=== PATIENT | male | born 1955 ===

== ENCOUNTER 2025-04-12 12:45 | Inpatient (IN) | payer OTHER ==
[~2025-04-12] VITALS: Ht 182.9 cm; Wt 84.8 kg
[2025-04-12] MEDS ORDERED: LIPITOR20 MG (14:11)
[2025-04-12] MEDS ORDERED: NORVASC5 MG PO (14:12)
[2025-04-12] MEDS ORDERED: JARDIANCE25 MG PO (14:12)
[2025-04-12] MEDS ORDERED: ZESTRIL20 MG PO (14:12)
[2025-04-12] MEDS ORDERED: HYDRALAZINE HCL25 MG PO (14:12)
[2025-04-12] MEDS ORDERED: ASA81 MG PO (14:13)
[2025-04-12] MEDS ORDERED: CARVEDILOL25 MG (14:13)
[2025-04-12] MEDS ORDERED: TAMS0.4C PO (14:14)
[2025-04-12] MEDS ORDERED: PLAVIX75 MG PO (14:14)
[2025-04-20] MEDS ORDERED: ROSUVASTATIN CA20 MG (15:20)
[2025-04-20] MEDS ORDERED: OXYBUTYNIN CHLO15 MG (15:21)
[2025-04-27] MEDS ORDERED: METRONIDAZOLE/SODIUM CHLORIDE 500 MG/100 ML PIGGYBACK IV ONE ×2 (07:00→17:26)
[2025-04-27] MEDS ORDERED: BUPIVACAINE HCL/MPF 0.5% 30ML VIAL ONE (07:00)
[2025-04-27] MEDS ORDERED: CEFTRIAXONE SODIUM 2,000 MG VIAL ONE (07:00)
[2025-04-27] MEDS ORDERED: LIDOCAINE HCL 1% 20 ML VIAL IJ ONE (07:01)
[2025-04-27] MEDS ORDERED: SUGAMMADEX SODIUM 200 MG/2 ML VIAL IV ONE (11:00)
[2025-04-27] MEDS ORDERED: OxyCODONE HCL 5 MG TABLET (ROXICODONE) PO PRN (11:15)
[2025-04-27] MEDS ORDERED: ONDANSETRON HCL 2 MG/ML VIAL IV PRN (11:15)
[2025-04-27] MEDS ORDERED: MORPHINE SULFATE 4 MG/ML CARTRIDGE IV PRN (11:15)
[2025-04-27] MEDS ORDERED: DEXTROSE 50 % IN WATER 0.5 G/ML VIAL IV PRN ×2 (11:15→13:45)
[2025-04-27] MEDS ORDERED: RINGERS SOLUTION,LACTATED 1,000 ML IV SCH (11:15)
[2025-04-27] MEDS ORDERED: ACETAMINOPHEN 500 MG GEL..CAP PO SCH (12:00)
[2025-04-27] MEDS ORDERED: SIMETHICONE 125 MG CAPSULE PO SCH (13:00)
[2025-04-27] MEDS ORDERED: HYOSCYAMINE SULFATE 0.125 MG TAB.SUBL SL SCH (13:00)
[2025-04-27] MEDS ORDERED: INSULIN LISPRO 1,000 UNIT/10 ML UNITS SUBCUTANEO PRN (13:45)
[2025-04-27 13:46] LABS: BASO % 0.5 % (0.1-1.2); EOS # 0.01 (0.04-0.54); EOS % 0.2 % (0.7-7.0); LYMPH # 0.45 (1.18-3.74); LYMPH % 8.2 % (19.3-53.1); MEAN PLATELET VOLUME 10.90 fl (9.4-12.4); MONO # 0.35 (0.24-0.82); MONO % 6.3 % (4.7-12.5); NEUT # 4.67 (1.56-6.13); NEUT % 84.6 % (34.0-71.1); RED CELL DISTRIBUTION WIDTH 11.9 % (11.6-14.4)
[2025-04-27] MEDS ORDERED: ENALAPRILAT DIHYDRATE 1.25 MG/ML VIAL IV PRN (14:00)
[2025-04-27 14:21] LABS: BUN CREA RATIO 15.0 (7.0-25.0); CREATININE SERUM 1.17 mg/dL (0.70-1.30); GFR 61.99; GLUCOSE FASTING 157.0 mg/dL (65-100); OSMOLALITY SERUM 290.0 MOSM/KG (275-295)
[2025-04-27] MEDS ORDERED: METRONIDAZOLE/SODIUM CHLORIDE 500 MG/100 ML PIGGYBACK IV SCH (17:00)
[2025-04-27] MEDS ORDERED: METOCLOPRAMIDE HCL 5 MG/ML VIAL IV SCH (17:00)
[2025-04-27] MEDS ORDERED: GABAPENTIN 300 MG CAPSULE PO SCH (17:00)
[2025-04-27] MEDS ORDERED: HYOSCYAMINE SULFATE 0.125 MG TAB.SUBL ONE (17:25)
[2025-04-27] MEDS ORDERED: SIMETHICONE 125 MG CAPSULE PO ONE ×2 (17:25→20:21)
[2025-04-27] MEDS ORDERED: GABAPENTIN 300 MG CAPSULE PO ONE (17:25)
[2025-04-27] MEDS ORDERED: ACETAMINOPHEN 500 MG GEL..CAP PO ONE (19:11)
[2025-04-27] MEDS ORDERED: CIPROFLOXACIN IN 5 % DEXTROSE 400 MG/200 ML PIGGYBAG IV ONE (20:15)
[2025-04-27] MEDS ORDERED: FAMOTIDINE/PF 20 MG/2 ML VIAL ONE (20:15)
[2025-04-27] MEDS ORDERED: TAMSULOSIN HCL 0.4 MG CAP PO ONE (20:21)
[2025-04-27] MEDS ORDERED: CIPROFLOXACIN IN 5 % DEXTROSE 400 MG/200 ML PIGGYBAG IV SCH (21:00)
[2025-04-27] MEDS ORDERED: FAMOTIDINE/PF 20 MG/2 ML VIAL IV PUSH SCH (21:00)
[2025-04-27] MEDS ORDERED: TAMSULOSIN HCL 0.4 MG CAP PO SCH (21:00)
[2025-04-27 21:20] VITALS: BP 140/70; O2SAT 93
[2025-04-28] VITALS (10 sets, daily range): BP systolic 113–149; BP diastolic 57–71; O2SAT 90–97
[2025-04-28 07:23] LABS: BUN CREA RATIO 13.0 (7.0-25.0); CREATININE SERUM 0.96 mg/dL (0.70-1.30); GFR 77.89; GLUCOSE FASTING 139.0 mg/dL (65-100); OSMOLALITY SERUM 285.0 MOSM/KG (275-295)
[2025-04-28 07:30] LABS: BASO % 0.1 % (0.1-1.2); EOS # 0.00 (0.04-0.54); EOS % 0.0 % (0.7-7.0); LYMPH # 0.60 (1.18-3.74); LYMPH % 7.9 % (19.3-53.1); MEAN PLATELET VOLUME 11.10 fl (9.4-12.4); MONO # 0.70 (0.24-0.82); MONO % 9.2 % (4.7-12.5); NEUT # 6.24 (1.56-6.13); NEUT % 82.4 % (34.0-71.1); RED CELL DISTRIBUTION WIDTH 11.6 % (11.6-14.4)
[2025-04-28] MEDS ORDERED: AMLODIPINE BESYLATE 5 MG TABLET PO SCH (09:00)
[2025-04-28] MEDS ORDERED: LACTOBACILLUS ACIDOPHILUS 1 CAP CAP PO SCH (09:00)
[2025-04-28] MEDS ORDERED: CARVEDILOL 25 MG TABLET PO SCH (09:00)
[2025-04-28] MEDS ORDERED: LISINOPRIL 20 MG TABLET PO SCH (09:00)
[2025-04-28] MEDS ORDERED: MAGNESIUM SULFATE IN WATER 4 GM/100 ML PIGGYBACK IV NR (15:30)
[2025-04-28] MEDS ORDERED: ATORVASTATIN CALCIUM 20 MG TABLET PO SCH (17:00)
[2025-04-28] MEDS ORDERED: ENOXAPARIN SODIUM 40 MG/0.4 ML SYRINGE SUBCUTANEO SCH (17:00)
[2025-04-28] MEDS ORDERED: POTASSIUM CHLORIDE IN WATER 100 ML IV NR (19:00)
[2025-04-29] VITALS (8 sets, daily range): BP systolic 138–163; BP diastolic 52–78; O2SAT 90–99
[2025-04-29 08:42] LABS: BASO % 0.6 % (0.1-1.2); EOS # 0.06 (0.04-0.54); EOS % 1.0 % (0.7-7.0); LYMPH # 0.83 (1.18-3.74); LYMPH % 13.2 % (19.3-53.1); MEAN PLATELET VOLUME 11.50 fl (9.4-12.4); MONO # 0.52 (0.24-0.82); MONO % 8.3 % (4.7-12.5); NEUT # 4.82 (1.56-6.13); NEUT % 76.6 % (34.0-71.1); RED CELL DISTRIBUTION WIDTH 11.7 % (11.6-14.4)
[2025-04-29 08:57] LABS: BUN CREA RATIO 13.0 (7.0-25.0); CREATININE SERUM 1.04 mg/dL (0.70-1.30); GFR 71.02; GLUCOSE FASTING 122.0 mg/dL (65-100); OSMOLALITY SERUM 288.0 MOSM/KG (275-295)
[2025-04-29] MEDS ORDERED: ENOXAPARIN SODIUM 40 MG/0.4 ML SYRINGE SUBCUTANEO SCH (09:00)
[2025-04-29] MEDS ORDERED: SOD FERRIC GLUC COMPLX/SUCROSE 62.5 MG in 0.9 % SODIUM CHLORIDE 50 ML IV SCH (12:00)
[2025-04-29] MEDS ORDERED: POTASSIUM PHOS,M-BASIC-D-BASIC 3 MM/ML VIAL IV ONE (14:00)
[2025-04-30] VITALS (7 sets, daily range): BP systolic 106–171; BP diastolic 65–82; O2SAT 90–97
[2025-04-30 06:05] LABS: BASO % 0.7 % (0.1-1.2); EOS # 0.17 (0.04-0.54); EOS % 4.1 % (0.7-7.0); LYMPH # 0.64 (1.18-3.74); LYMPH % 15.6 % (19.3-53.1); MEAN PLATELET VOLUME 11.10 fl (9.4-12.4); MONO # 0.40 (0.24-0.82); MONO % 9.8 % (4.7-12.5); NEUT # 2.84 (1.56-6.13); NEUT % 69.3 % (34.0-71.1); RED CELL DISTRIBUTION WIDTH 11.4 % (11.6-14.4)
[2025-04-30 07:18] LABS: BUN CREA RATIO 13.0 (7.0-25.0); CREATININE SERUM 0.84 mg/dL (0.70-1.30); GFR 90.87; GLUCOSE FASTING 113.0 mg/dL (65-100); OSMOLALITY SERUM 289.0 MOSM/KG (275-295)
[2025-04-30] MEDS ORDERED: POTASSIUM CHLORIDE 20MEQ/100ML H2O PB IV NR (11:30)
[2025-04-30] MEDS ORDERED: POTASSIUM PHOS,M-BASIC-D-BASIC 3 MM/ML VIAL IV NR (12:00)
[2025-04-30] MEDS ORDERED: POTASSIUM CHLORIDE 8 MEQ TABLET PO NR (14:15)
== END 2025-04-30 17:08 | disposition home or self-care (01) | DRG 331 ==
LOC: O/R 04-20 06:00 → SURH 04-20 06:00 → O/R 04-23 11:01 → SURG 04-27 14:34
PROVIDERS: Internal Medicine; Internal Medicine Geriatric Medicine; ADMIT Surgery; ATTEND Surgery
PROC: 07BB4ZZ Excision of Mesenteric Lymphatic, Percutaneous Endoscopic Approach (ICD-10-PCS; 2025-04-27)
PROC: 0DNW4ZZ Release Peritoneum, Percutaneous Endoscopic Approach (ICD-10-PCS; 2025-04-27)
PROC: 4A12X4Z Monitoring of Cardiac Electrical Activity, External Approach (ICD-10-PCS; 2025-04-27)
PROC: 8E0W4CZ Robotic Assisted Procedure of Trunk Region, Percutaneous Endoscopic Approach (ICD-10-PCS; 2025-04-27)
PROC: 0DTG4ZZ Resection of Left Large Intestine, Percutaneous Endoscopic Approach (ICD-10-PCS; principal; 2025-04-27 07:00)
DX: C18.6 Malignant neoplasm of descending colon (principal); K66.0 Peritoneal adhesions (postprocedural) (postinfection); D49.0 Neoplasm of unspecified behavior of digestive system; I11.9 Hypertensive heart disease without heart failure; K63.89 Other specified diseases of intestine; J45.20 Mild intermittent asthma, uncomplicated; Z86.13 Personal history of malaria; E78.5 Hyperlipidemia, unspecified; G47.30 Sleep apnea, unspecified
CPT/HCPCS: 44204; 38520; 44180; 44213; 93228; S2900